=== PATIENT | male | born 1980 | race American Indian/Alaskan Native ===

== ENCOUNTER 2021-12-09 06:06 | Day surgery (SDC) | payer OTHER ==
[~2021-12-09 06:06] MED LIST: ACETAMINOPHEN 500 MG TAB PO SCH; LACTATED RINGERS 1,000 ML IV SCH; MIDAZOLAM 2 MG/2 ML INJ IV NR
[2021-12-09 07:14] LABS: Hematocrit 21.1 % (35.5-45.6); Hemoglobin 6.8 gm/dl (11.8-15.2); Mean Corpuscular HGB Conc 32 % (32-34); Platelet Count 307 K/mm3 (140-440); Red Blood Count 3.28 M/mm3 (3.65-5.03); Red Cell Distribution Width 18.2 % (13.2-15.2)
[2021-12-09 07:15] LABS: Mean Corpuscular Volume 65 fl (84-94)
[2021-12-09] MEDS ORDERED: DIBUCAINE 1% OINT 28 GM ONE (07:19)
[2021-12-09] MEDS ORDERED: LIDOCAINE (2%) 20 MG/1 ML VIAL 20 ML MDV INFILTRATI ONE ×2 (07:19→09:45)
[2021-12-09] MEDS ORDERED: BUPIVACAINE/PF (0.5%) 5 MG/1 ML 10 ML VIAL INFILTRATI ONE ×2 (07:20→09:44)
[2021-12-09] MEDS ORDERED: propofoL 200 MG/20 ML VIAL IV ONE (07:26)
[2021-12-09] MEDS ORDERED: LIDOCAINE MPF (2%) 20 MG/1 ML VIAL 5 ML ONE (07:26)
[2021-12-09] MEDS ORDERED: fentaNYL 100 MCG/2 ML INJ ONE (07:26)
--- NOTE | 2021-12-09 07:27 | Anesthesia Consultation ---
<IZA TOMLIN - Last Filed: 12/09/21 07:25> Anesthesia Consult and Med Hx Date of service: 12/09/21 - Airway Anesthetic Teeth Evaluation: Good ROM Head & Neck: Adequate Mental/Hyoid Distance: Adequate Mallampati Class: Class II Intubation Access Assessment: Probably Good - Pre-Operative Health Status ASA Pre-Surgery Classification: ASA2 Proposed Anesthetic Plan: General - Central Nervous System Hx Psychiatric Problems: No - Hematic Hx Anemia: Yes - Other Systems Hx Cancer: No - Additional Comments Anesthesia Medical History Comments: hemorrhoids <LUIS ALBERTO SANZ - Last Filed: 12/09/21 07:59> Anesthesia Consult and Med Hx - Additional Comments Anesthesia Medical History Comments: Patient noted to be anemic to Hb 6.8 on preop CBC. HD stable, asymptomatic. Patient reports chronic bleeding from hemrrhoids. Will give 1 units pRBCs perioperatively.
--- NOTE | 2021-12-09 07:28 | Anesthesia Day of Surgery ---
Anesthesia Day of Surgery - Day of Surgery Patient Examined: Yes Patient H&P Reviewed: Yes Patient is NPO: Yes
[2021-12-09 07:30] LABS: BUN/Creatinine Ratio 9; Blood Urea Nitrogen 10 mg/dL (9-20); Hemolysis Index 40
[2021-12-09] MEDS ORDERED: FAMOTIDINE 20 MG/2 ML INJ IV NR (08:00)
[2021-12-09] MEDS ORDERED: oxyCODONE /ACETAMINOPHEN 5-325MG TAB PO PRN (08:00)
[2021-12-09] MEDS ORDERED: HYDROmorphone 0.5 MG/0.5 ML INJ IV PRN (08:00)
[2021-12-09] MEDS ORDERED: ONDANSETRON 4 MG/2 ML INJ IV PRN (08:00)
[2021-12-09] MEDS ORDERED: GABAPENTIN 300 MG CAP PO NR (08:00)
[2021-12-09] MEDS ORDERED: SODIUM CHLORIDE 0.9% 100 ML ONE (08:45)
[2021-12-09] MEDS ORDERED: dexAMETHasone 20 MG/5 ML VIAL ONE (08:45)
[2021-12-09] MEDS ORDERED: ONDANSETRON 4 MG/2 ML INJ ONE (08:45)
[2021-12-09] MEDS ORDERED: SUCCINYLCHOLINE CHLORIDE 200 MG/10 ML INJ MDV ONE (08:45)
[2021-12-09] MEDS ORDERED: ROCURONIUM 50 MG/5 ML INJ IV ONE (08:45)
[2021-12-09] MEDS ORDERED: SODIUM CHLORIDE 0.9% IRR 1,500 ML BOTTLE IR ONE (08:50)
[2021-12-09] MEDS ORDERED: GLYCOPYRROLATE 0.4 MG/2 ML INJ ONE (08:58)
[2021-12-09] MEDS ORDERED: HYDROmorphone 0.5 MG/0.5 ML INJ ONE (09:09)
[2021-12-09] MEDS ORDERED: LACTATED RINGERS 1,000 ML ONE (09:31)
--- NOTE | 2021-12-09 09:40 | Short Stay Summary ---
Short Stay Documentation Date of service: 12/09/21 Narrative H&P: 41 yo M with hx of bleeding internal hemorrhoids who presents for REUA, THD procedure. Patient with no other medical hx. Preop labs revealed anemia, Hb 6.8. This was unknown to the patient. Etiology unclear and patient has not had dx or w/u for anemia in past. As hemorrhoids are symptomatic, will proceed with procedure. Patient consented for blood transfusion and will receive 1 Unit PRBC today. I advised the patient to make an appointment with PCP as soon as possible post op to undergo anemia w/u. Will likely need referral to GI for cscope. - History Principal diagnosis: grade 3 internal hemorrhoids H&P: obtained from office - Allergies and Medications Current Medications: Allergies No Known Allergies Allergy (Unverified 12/03/21 18:59) Home Medications Medication Instructions Recorded Confirmed Last Taken Type RX: No Known Home Medications [No 12/03/21 12/03/21 Unknown History Reported Home Medications] Active Medications Acetaminophen (Acetaminophen 500 Mg Tab) 1,000 mg PO PREOP GEORGINA Stop: 12/09/21 23:59 Last Admin: 12/09/21 07:09 Dose: 1,000 mg Famotidine (Famotidine 20 Mg/2 Ml Inj) 20 mg IV PREOP NR Stop: 12/09/21 20:00 Last Admin: 12/09/21 07:45 Dose: 20 mg Gabapentin (Gabapentin 300 Mg Cap) 300 mg PO PREOP NR Stop: 12/09/21 13:00 Last Admin: 12/09/21 07:45 Dose: 300 mg Hydromorphone HCl (Hydromorphone 0.5 Mg/0.5 Ml Inj) 0.5 mg IV Q10MIN PRN PRN Reason: Pain , Severe (7-10) Stop: 12/09/21 20:00 Lactated Ringer's (Lactated Ringers) 1,000 mls @ 100 mls/hr IV DIRECT GEORGINA Stop: 12/09/21 23:59 Last Admin: 12/09/21 07:12 Dose: 100 mls/hr Midazolam HCl (Midazolam 2 Mg/2 Ml Inj) 2 mg IV PREOP NR Stop: 12/09/21 23:59 Last Admin: 12/09/21 07:55 Dose: 2 mg Ondansetron HCl (Ondansetron 4 Mg/2 Ml Inj) 4 mg IV ONCE PRN PRN Reason: Nausea And Vomiting Stop: 12/09/21 12:00 Oxycodone/Acetaminophen (Oxycodone /Acetaminophen 5-325mg Tab) 1 tab PO ONCE PRN PRN Reason: Pain, Moderate (4-6) Stop: 12/09/21 12:00 - Brief post op/procedure progress note Date of procedure: 12/09/21 Pre-op diagnosis: grade 3 internal hemorrhoids Post-op diagnosis: same Procedure: rectal exam under anesthesia, transanal hemorrhoid dearterialization, excision external hemorrhoids Anesthesia: GETA, local Findings: 1. Grade 3 internal hemorrhoids 2. Mucopexy performed at 9-oclock, 1 oclock, 5 oclock positions 3. Abnormal appearance of rectal mucosa with white plaques present 4. Indurated external hemorrhoid with small mucosal growths at the posterior midline location and left lateral location Surgeon: NAYAN VALERIO Golf Technician: LEYDA DAVE Estimated blood loss: minimal Pathology: list (1. posterior midline external hemorrhoid, 2. left lateral external hemorrhoid) Specimen disposition: to lab Condition: stable - Hospital course Hospital course: Pt observed in PACU and discharged to home in stable condition when criteria met - Disposition Condition at discharge: Good Disposition: 01 HOME / SELF CARE / HOMELESS Short Stay Discharge Plan Activity: other (no driving if taking prescription pain medications) Diet: regular Wound: open to air Additional Instructions: SEE DETAILED PRINTED INSTRUCTIONS Follow up with: PRIMARY CAREMD [Primary Care Provider] - 7 Days NAYAN VALERIO DO [Staff Physician] - 14 Days Prescriptions: Docusate Sodium [Colace] 100 mg PO BID PRN #30 capsule PRN Reason: Constip Unreliev By Mom/Or Npo polyethylene glycoL 3350 [Miralax 3350] 17 gm PO QDAY #10 packet RX: oxyCODONE /ACETAMINOPHEN [Percocet 5/325 mg] 1 tab PO ONCE PRN #30 tablet PRN Reason: Pain, Moderate (4-6)
[2021-12-09 11:27] VITALS: BP 139/78
--- NOTE | 2021-12-09 11:38 | Post Anesthesia Evaluation ---
- Post Anesthesia Evaluation Patient Participated: Yes Airway Patent: Yes Stable Respiratory Function: Yes Nausea/Vomiting: No Temp > 96.8F: Yes Pain Manageable: Yes Adequeate Hydration: Yes Anesthesia Complications: No Other Comments: Received pRBCs intraop. HD stable in PACU. OK for d/c.
--- NOTE | 2021-12-09 12:45 | Operative Report ---
Operative Report Operative Report: Date of procedure: 12/09/21 Pre-op diagnosis: grade 3 internal hemorrhoids Post-op diagnosis: same Procedure: rectal exam under anesthesia, transanal hemorrhoid dearterialization, excision external hemorrhoids Anesthesia: GETA, local Findings: 1. Grade 3 internal hemorrhoids 2. Mucopexy performed at 9-oclock, 1 oclock, 5 oclock positions 3. Abnormal appearance of rectal mucosa with white plaques present 4. Indurated external hemorrhoid with small mucosal growths at the posterior midline location and left lateral location Surgeon: NAYAN VALERIO Onsite Health Coach: LEYDA DAVE Estimated blood loss: minimal Pathology: list (1. posterior midline external hemorrhoid, 2. left lateral external hemorrhoid) Specimen disposition: to lab Condition: stable Hospital course: Pt observed in PACU and discharged to home in stable condition when criteria met Condition at discharge: Good Disposition: 01 HOME / SELF CARE / HOMELESS HPI and indication: Patient is a 41-year-old male who presented to the surgery clinic for evaluation of rectal bleeding, hemorrhoids. Patient was having bleeding from hemorrhoids for some time. On exam he was found to have prolapsing internal hemorrhoids along with external hemorrhoids circumfrentially. It was recommended that he undergo transarterial dearterialization of the hemorrhoids as well as rectal exam under anesthesia. All risks, benefits, alternatives to surgery were discussed and questions answered. Consent was obtained. Procedure in detail: The patient was identified in the preoperative area and taken to the operating. Anesthesia was induced on the patient's stretcher and she was then placed in prone jackknife position on the operating room table. The rectal area was prepped and draped in the usual sterile fashion. Timeout was performed. A rectal exam was performed which revealed grade 3 internal hemorrhoids, external hemorrhoids with small mucosal growths, and abnormal a ppearing rectal mucosa with white plaques. The Doppler anoscope was then used to identify hemorrhoidal arteries at 1, 3, 5, 7, 9, and 11:00 positions. 2-0 Vicryl was used to perform the dearterialization in each of these positions. Hemorrhoidal pexy was performed at the 9 oclock, 1 oclock, and 5 oclock positions for redundant rectal mucosa. Great care was taken to avoid the white plaques The external hemorrhoids were then excised using a 10 blade and cautery in the posterior midline and left lateral positions. The skin was approximated using a 3-0 chromic suture. An intersphincteric nerve block was then performed with half percent Marcaine and 1% lidocaine. Gelfoam gauze coated in the Dibucaine was inserted into the rectum. Hemostasis was ensured. A rolled up fluff gauze was placed over the anus and covered with a ABD pad, secured with tape and mesh underwear. At the end of the case all sponge, instrument, sharp counts were correct x2. Patient was awoken from anesthesia, transferred to the stretcher, extubated and taken to PACU in stable condition.
== END 2021-12-09 11:10 | disposition home or self-care (01) ==
LOC: OR 06:06
PROVIDERS: ATTEND Surgery
DX: K64.2 Third degree hemorrhoids (principal); D64.9 Anemia, unspecified; K64.4 Residual hemorrhoidal skin tags; Z79.899 Other long term (current) drug therapy
CPT/HCPCS: 36415; 46948; 80048; 85027; 86850; 86900; 86901; 86920; 88304; J0330; J1100; J1170; J1815; J2250; J2405; J2704; J3010; J3490; J7120; P9016